=== PATIENT | male | born 1990 | race Caucasian/White ===

== ENCOUNTER 2018-08-03 21:38 | Emergency (ER) | payer OTHER ==
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
[2018-08-04 00:04] VITALS: BP 120/75
== END 2018-08-04 00:05 | disposition home or self-care (01) ==
LOC: ER 21:38
DX: M54.2 Cervicalgia (principal); M25.511 Pain in right shoulder; V49.40XA Driver injured in collision with unspecified motor vehicles in traffic accident, initial encounter
CPT/HCPCS: 99283